=== PATIENT | female | born 1950 | race Caucasian/White ===

== ENCOUNTER 2021-07-09 16:41 | Emergency (ER) | payer MEDICARE ==
[2021-07-09 16:49] VITALS: BP 144/90; PULSE 111
--- NOTE | 2021-07-09 17:18 | EDM.PDOC ---
ED HPI GENERAL MEDICAL PROBLEM - General Chief Complaint: General Stated Complaint: WEAKNESS Time Seen by Provider: 07/09/21 17:00 Source of Information: Reports: Patient, RN Notes Reviewed History Limitations: Reports: No Limitations - History of Present Illness INITIAL COMMENTS - FREE TEXT/NARRATIVE: Abby presents today for complaints of generalized weakness for 3 days. She states she also had a fall in her bathroom 3 days ago where she struck the corner of the sink. She denies LOC or any other injury. She states "I feel weak just like I did before when I had to have a blood transfusion". She denies loss of balance, unsteadiness, difficulty speaking, eating or drinking. She denies fever, chills, nausea, vomiting, change in bowel/bladder, black, bloody or tar like stools. - Related Data Allergies Allergy/AdvReac Type Severity Reaction Status Date / Time No Known Allergies Allergy Verified 07/09/21 16:52 Home Meds: Home Meds Losartan [Cozaar] 150 mg PO DAILY 10/02/16 [History] Sertraline [Zoloft] 50 mg PO DAILY 10/02/16 [History] Simvastatin [Zocor] 40 mg PO DAILY 10/02/16 [History] Apixaban [Eliquis] 5 mg PO BID 07/20/19 [History] Metoprolol Tartrate 25 mg PO BID 07/20/19 [History] Past Medical History HEENT History: Reports: Impaired Vision Cardiovascular History: Reports: Afib, High Cholesterol, Hypertension Gastrointestinal History: Reports: GERD Genitourinary History: Reports: None OSTOMY NURSE History: Reports: Other OSTOMY NURSE History: Patient denies the Dysfunctional Uterine Bleeding. Musculoskeletal History: Reports: Osteoporosis Psychiatric History: Reports: Anxiety, Panic Attack Endocrine/Metabolic History: Reports: Obesity/BMI 30+ Hematologic History: Reports: Anemia, Blood Transfusion(s) - Infectious Disease History Infectious Disease History: Reports: Chicken Pox - Past Surgical History HEENT Surgical History: Reports: None Cardiovascular Surgical History: Reports: None GI Surgical History: Reports: Colonoscopy, EGD Female Surgical History: Reports: Hysterectomy Endocrine Surgical History: Reports: None Musculoskeletal Surgical History: Reports: Shoulder Surgery Social & Family History - Family History Family Medical History: No Pertinent Family History - Tobacco Use Tobacco Use Status *Q: Current Every Day Tobacco User Years of Tobacco use: 30 Packs/Tins Daily: 0.3 - Caffeine Use Caffeine Use: Reports: None - Recreational Drug Use Recreational Drug Use: Yes Recreational Drug Type: Reports: Marijuana/Hashish ED ROS GENERAL - Review of Systems Review Of Systems: See Below Constitutional: Reports: Malaise, Weakness, Decreased Appetite, Other (Fall three days ago without LOC. Struck the corner of the bathroom sink with her right forehead while in the bathroom. ). Denies: Fever, Chills, Fatigue, Night Sweats, Diaphoresis, Weight Loss, Weight Gain HEENT: Reports: No Symptoms Respiratory: Reports: No Symptoms Cardiovascular: Reports: No Symptoms Endocrine: Reports: No Symptoms GI/Abdominal: Reports: No Symptoms : Reports: No Symptoms Musculoskeletal: Reports: No Symptoms Skin: Reports: Bruising (right forehead/side of face. Abrasion right forehead.) Neurological: Reports: No Symptoms Psychiatric: Reports: No Symptoms Hematologic/Lymphatic: Reports: No Symptoms Immunologic: Reports: No Symptoms ED EXAM, GENERAL - Physical Exam Exam: See Below Exam Limited By: No Limitations General Appearance: Alert, WD/WN, No Apparent Distress Eye Exam: Bilateral Eye: Normal Inspection, PERRL Ears: Normal External Exam, Normal Canal, Hearing Grossly Normal, Normal TMs Nose: Normal Inspection, Normal Mucosa, No Blood Throat/Mouth: Normal Inspection, Normal Lips, Normal Gums, Normal Oropharynx, Normal Voice, No Airway Compromise, Other (dentures) Head: Normocephalic, Other (ecchymosis right forehead/face, tenderness with palpation, no indentation. ). No: Facial Swelling, Facial Tenderness, Sinus Tenderness Neck: Normal Inspection, Supple, Non-Tender, Full Range of Motion. No: Lymphadenopathy (R), Lymphadenopathy (L) Respiratory/Chest: No Respiratory Distress, Lungs Clear, Normal Breath Sounds, No Accessory Muscle Use, Chest Non-Tender. No: Crackles, Rales, Rhonchi, Wheezing, Stridor Cardiovascular: Normal Peripheral Pulses, No Edema, No Gallop, No Murmur, No Rub, Irregularly Irregular, Other (atrial fibrillation at a rate of 100-115 bpm) Peripheral Pulses: 4+: Radial (L), Radial (R), Dorsalis Pedis (L), Dorsalis Pedis (R) GI/Abdominal: Normal Bowel Sounds, Soft, Non-Tender, No Organomegaly, No Distention, No Mass. No: Guarding, Rigid, Rebound, Tender (Female) Exam: Deferred Rectal (Female) Exam: Deferred Back Exam: Normal Inspection, Full Range of Motion. No: CVA Tenderness (R), CVA Tenderness (L) Extremities: Normal Inspection, Normal Range of Motion, Non-Tender, No Pedal Edema, Normal Capillary Refill, Other (equal strength bilaterally, no slurring of speech. ) Neurological: Alert, Oriented, Normal Cognition, Normal Reflexes, No Motor/Sensory Deficits, Other (GCS 15) Psychiatric: Normal Affect, Normal Mood Skin Exam: Warm, Dry, Intact, Ecchymosis, Pallor, Wound/Incision (abrasion right forehead) Lymphatic: No Adenopathy #1 Interpretation EKG Date: 07/09/21 Time: 17:54 Rhythm: A-Fib Rate (Beats/Min): 115 [place]: Other (borderline left axis deviation) QRS: Normal ST-T: Normal QT: Normal Comparison: NA - No Prior EKG Course - Vital Signs Last Recorded V/S: Last Vital Signs Temp 36.2 C 07/09/21 16:48 Pulse 111 H 07/09/21 16:48 Resp 16 07/09/21 16:48 BP 144/90 H 07/09/21 16:48 Pulse Ox 99 07/09/21 16:48 - Orders/Labs/Meds Orders: Active Orders 24 hr Category Date Time Status CULTURE URINE [RM] Stat Lab 07/09/21 19:03 Received EKG 12 Lead [EK] Routine Ther 07/09/21 17:15 Ordered Labs: Laboratory Tests 07/09/21 07/09/21 07/09/21 Range/Units 17:40 17:40 17:40 WBC 10.7 (4.5-11.0) K/uL RBC 4.06 (3.30-5.50) M/uL Hgb 14.0 D (12.0-15.0) g/dL Hct 41.0 (36.0-48.0) % MCV 101 H (80-98) fL MCH 35 H (27-31) pg MCHC 34 (32-36) % Plt Count 161 (150-400) K/uL Neut % (Auto) 85.4 H (36-66) % Lymph % (Auto) 8.4 L (24-44) % Morris % (Auto) 5.7 (2-6) % Eos % (Auto) 0.3 L (2-4) % Baso % (Auto) 0.2 (0-1) % PT 10.4 (9.2-10.6) sec INR 1.0 APTT 22.3 (21.4-31.8) sec Sodium 142 (140-148) mmol/L Potassium 3.7 (3.6-5.2) mmol/L Chloride 102 (100-108) mmol/L Carbon Dioxide 23 (21-32) mmol/L Anion Gap 17.2 H (5.0-14.0) mmol/L BUN 13 (7-18) mg/dL Creatinine 0.9 D (0.6-1.0) mg/dL Est Cr Clr Drug Dosing 43.89 mL/min Estimated GFR (MDRD) > 60 (>60) Glucose 93 (74-106) mg/dL Calcium 8.6 (8.5-10.1) mg/dL Total Bilirubin 0.9 D (0.2-1.0) mg/dL AST 224 H D (15-37) U/L ALT 123 H (12-78) U/L Alkaline Phosphatase 113 (46-116) U/L Total Protein 6.6 (6.4-8.2) g/dL Albumin 3.5 (3.4-5.0) g/dL Globulin 3.1 (2.3-3.5) g/dL Albumin/Globulin Ratio 1.1 L (1.2-2.2) Urine Color (YELLOW) Urine Appearance (CLEAR) Urine pH (5.0-8.0) Ur Specific [place] (1.008-1.030) Urine Protein (NEGATIVE) mg/dL Urine Glucose (UA) (NEGATIVE) mg/dL Urine Ketones (NEGATIVE) mg/dL Urine Occult Blood (NEGATIVE) Urine Nitrite (NEGATIVE) Urine Bilirubin (NEGATIVE) Urine Urobilinogen (0.2-1.0) EU/dL Ur Leukocyte Esterase (NEGATIVE) Urine RBC (0-5) Urine WBC (0-5) Ur Epithelial Cells Amorphous Sediment Urine Bacteria Urine Mucus Ethyl Alcohol mg/dL SARS CoV-2 RNA Rapid SERA 07/09/21 07/09/21 07/09/21 Range/Units 17:47 17:47 19:18 WBC (4.5-11.0) K/uL RBC (3.30-5.50) M/uL Hgb (12.0-15.0) g/dL Hct (36.0-48.0) % MCV (80-98) fL MCH (27-31) pg MCHC (32-36) % Plt Count (150-400) K/uL Neut % (Auto) (36-66) % Lymph % (Auto) (24-44) % Morris % (Auto) (2-6) % Eos % (Auto) (2-4) % Baso % (Auto) (0-1) % PT (9.2-10.6) sec INR APTT (21.4-31.8) sec Sodium (140-148) mmol/L Potassium (3.6-5.2) mmol/L Chloride (100-108) mmol/L Carbon Dioxide (21-32) mmol/L Anion Gap (5.0-14.0) mmol/L BUN (7-18) mg/dL Creatinine (0.6-1.0) mg/dL Est Cr Clr Drug Dosing mL/min Estimated GFR (MDRD) (>60) Glucose (74-106) mg/dL Calcium (8.5-10.1) mg/dL Total Bilirubin (0.2-1.0) mg/dL AST (15-37) U/L ALT (12-78) U/L Alkaline Phosphatase (46-116) U/L Total Protein (6.4-8.2) g/dL Albumin (3.4-5.0) g/dL Globulin (2.3-3.5) g/dL Albumin/Globulin Ratio (1.2-2.2) Urine Color Yellow (YELLOW) Urine Appearance Cloudy A (CLEAR) Urine pH 6.5 (5.0-8.0) Ur Specific [place] 1.020 (1.008-1.030) Urine Protein 100 H (NEGATIVE) mg/dL Urine Glucose (UA) Negative (NEGATIVE) mg/dL Urine Ketones 40 H (NEGATIVE) mg/dL Urine Occult Blood Large H (NEGATIVE) Urine Nitrite Positive H (NEGATIVE) Urine Bilirubin Moderate H (NEGATIVE) Urine Urobilinogen 2.0 H (0.2-1.0) EU/dL Ur Leukocyte Esterase Trace H (NEGATIVE) Urine RBC 5-10 H (0-5) Urine WBC 5-10 H (0-5) Ur Epithelial Cells Many Amorphous Sediment Moderate Urine Bacteria Many Urine Mucus Moderate Ethyl Alcohol < 3 mg/dL SARS CoV-2 RNA Rapid SERA Negative Patient lab work reviewed, noted Urinary tract infection, elevated liver e nzymes. We will complete urine culture, provide rocephin 1gm IV, normal saline 500ml IV as she had 500ml per EMS, provide oral antibiotics and discharge to home. Patient and her notified, they are in agreement with plan. Patient counseled on need to stop use of alcohol due to her liver enzymes and risk for falling with use of apixaban. Patient verbalized understanding. Meds: Medications Discontinued Medications Generic Name Dose Route Start Last Admin Trade Name Freq PRN Reason Stop Dose Admin Ceftriaxone Sodium 1 gm/ 50 mls @ 100 mls/hr 07/09/21 18:58 07/09/21 19:21 Sodium Chloride IV 07/09/21 19:27 100 mls/hr ONETIME ONE Administration Sodium Chloride 500 mls @ 500 mls/hr 07/09/21 18:59 07/09/21 19:20 Normal Saline IV 07/09/21 19:58 500 mls/hr .BOLUS ONE Administration - Radiology Interpretation Free Text/Narrative:: CT head without IV contrast completed. Noted trace recent subarachnoid hemorrhage within a lateral left frontal sulcus. Soft tissue swelling involving the anterior right frontal scalp No cavarial fracture. - Re-Assessments/Exams Free Text/Narrative Re-Assessment/Exam: 07/09/21 18:45 Patient lab work reviewed with her. CT of head report remains pending. Noted UTI present. We will administer rocephin 1gram IV, additional IV fluids. 07/09/21 19:48 CT report reviewed, [facility] one call telephoned for neurology consult. They will call us back. 07/09/21 20:46 [place] [facility] contacted, CT images received. Neurology page - pending further instruction. 07/09/21 20:56 Patient status, exam and CT discussed with Dr. Ramirez [facility] Neurology. No acute concerns or repeat of CT needed at this time as initial injury was three days ago. Patient is safe to be discharged to home. Follow up with primary in 7 to 10 days for a recheck. UTI is most likely the cause of generalized weakn ess. 07/09/21 20:57 Patient and her notified, Abby will be discharged to home. Departure - Departure Time of Disposition: 21:03 Disposition: Home, Self-Care 01 Condition: Good Clinical Impression: UTI (urinary tract infection), UTI, Urinary tract infectious disease, Fall from standing, Subarachnoid bleed, Atrial fibrillation, chronic - Discharge Information *PRESCRIPTION DRUG MONITORING PROGRAM REVIEWED*: Not Applicable *COPY OF PRESCRIPTION DRUG MONITORING REPORT IN PATIENT PRISCA: Not Applicable Instructions: Subarachnoid Hemorrhage, [id number], Urinary Tract Infection, Adult Referrals: PCP,None [Primary Care Provider] - Forms: ED Department Discharge Additional Instructions: You have been evaluated and treated for urinary tract infection. Normal hemoglobin today. You were given a total of 1liter normal saline IV fluids, rocphein 1gram IV for hydration and urinary tract infection. You must get up, ambulate and move around to gain strength as well as eat a healthy diet. Drink plenty of water to stay hydrated. Work on cessation of alcohol. Take ciprofloxacin 500mg by mouth twice a day for urinary tract infection. Follow up with your primary provider in 3 to 7 days for recheck. Return to the emergency room for any worsening, issues or concerns. Sepsis Event Note (ED) - Evaluation Sepsis Screening Result: No Definite Risk - Focused Exam Vital Signs: Vital Signs Temp Pulse Resp BP Pulse Ox 07/09/21 16:48 36.2 C 111 H 16 144/90 H 99 07/09/21 16:43 36.2 C 111 H 16 144/90 H 99 - My Orders Last 24 Hours: My Active Orders 07/09/21 17:15 EKG 12 Lead [EK] Routine 07/09/21 19:03 CULTURE URINE [RM] Stat - Assessment/Plan Last 24 Hours: My Active Orders 07/09/21 17:15 EKG 12 Lead [EK] Routine 07/09/21 19:03 CULTURE URINE [RM] Stat Assessment:: UTI (urinary tract infection), UTI, Urinary tract infectious disease, Fall from standing, Subarachnoid bleed, Atrial fibrillation, chronic Plan: Patient evaluated and treated for urinary tract infection. Normal hemoglobin today. Patient was given a total of 1liter normal saline IV fluids, rocphein 1gram IV for hydration and urinary tract infection. She is advised to ambulate and move around to gain strength with use of her walker as well as eat a healthy diet. Drink plenty of water to stay hydrated. Work on cessation of alcohol. Consider treatment to stop use of alcohol and stay sober. Take ciprofloxacin 500mg by mouth twice a day for urinary tract infection. Follow up with primary provider in 3 to 7 days for recheck. Return to the emergency room for any worsening, issues or concerns.
[2021-07-09] MEDS ORDERED: cefTRIAXone 1 GM in Sodium Chloride 0.9% 50 ML IV ONE (18:58)
[2021-07-09] MEDS ORDERED: Sodium Chloride 0.9% 500 ML IV ONE (18:59)
--- NOTE | 2021-07-09 19:03 | CRLCT ---
For Patients: As a result of the Century Cures Act, medical imaging exams and procedure reports are released immediately into your electronic medical record. You may view this report before your referring provider. If you have questions, please contact your health care provider. INDICATION: Weakness. Fall 3 days ago. TECHNIQUE: Noncontrast CT images acquired through the brain. COMPARISON: None. FINDINGS: Trace hyperattenuating subarachnoid hemorrhage within the lateral left frontal sulcus (series 4, image 26 and 27). Prominence of the ventricles and sulci compatible with mild to moderate diffuse cerebral volume loss. No mass effect or midline shift. The duncan-white differentiation is maintained. No pathologic extra-axial fluid collection. Scattered hypoattenuation in the supratentorial white matter, suggestive of mild chronic microvascular ischemic changes. Intracranial atherosclerotic calcifications. Soft tissue swelling within the anterior right frontal scalp. The calvarium is intact. Thinning of the ocular lenses. Minimal mucosal thickening within the frontal recesses. The visualized mastoid air cells are clear. IMPRESSION: 1. Trace recent subarachnoid hemorrhage within a lateral left frontal sulcus. 2. Soft tissue swelling involving the anterior right frontal scalp. No calvarial fracture. Please note that all CT scans at this facility use dose modulation, iterative reconstruction, and/or weight-based dosing when appropriate to reduce radiation dose to as low as reasonably achievable. Dictated by Favian Sanchez MD @ 07/09/2021 7:01:18 PM (Electronically Signed)
== END 2021-07-09 21:27 | disposition home or self-care (01) ==
LOC: JP.ED 16:41
DX: S06.6X0A Traumatic subarachnoid hemorrhage without loss of consciousness, initial encounter (principal); N39.0 Urinary tract infection, site not specified; I48.20 Chronic atrial fibrillation, unspecified; E78.00 Pure hypercholesterolemia, unspecified; I10 Essential (primary) hypertension; K21.9 Gastro-esophageal reflux disease without esophagitis; E66.9 Obesity, unspecified; Z72.0 Tobacco use; Z68.34 Body mass index [BMI] 34.0-34.9, adult; Z79.01 Long term (current) use of anticoagulants; Z79.899 Other long term (current) drug therapy; Z20.822 Contact with and (suspected) exposure to COVID-19; W18.39XA Other fall on same level, initial encounter
CPT/HCPCS: 36415; 70450; 80053; 80307; 81001; 85025; 85610; 85730; 87086; 93005; 96365; 99285; J0696; J7040; U0002